=== PATIENT | female | born 1945 | race Two or more races ===

== ENCOUNTER 2025-03-20 11:09 | Emergency (ER) | payer OTHER ==
[~2025-03-20] VITALS: Ht 139.7 cm; Wt 50.0 kg
--- NOTE | 2025-03-20 11:37 | ED.PDOC ---
GI ASSESSMENT HPI Comments This is a 79 year old female BIB son and granddaughter presenting to the ED with chief complaint of abdominal pain. Son reports patient has been experiencing diffuse abdominal pain over the past few days along with exacerbation of her chronic back pain. Son relays that the patient has upcoming back surgery on 04/10 and patient was seen today in [facility] for pre-op, however, he was advised to take the patient to the ED for further evaluation of the abdominal pain. Son states patient was given Advil last night with no relief noted. Son notes patient was given a steroid injection for her back a week ago, but no relief in pain in her back had been noted. Son reports patient is unable to ambulate on her own with a walker, which is not normal for her. Patient denies any chest pain, N/V/D, SOB, dizziness, fever, chills, or dysuria. Chief Complaint: Back Pain Time Seen by MD: 11:34 Reviewed Notes: Nurses Notes, Medications, Allergies Allergies: Coded Allergies: NO KNOWN ALLERGIES (Unverified , 03/20/25) Information Source: Patient, Relative (Child) Mode of Arrival: Wheelchair Timing: Days Duration: Since onset Prehospital treatment: None Quality: Sharp Vomitus: None Stool: Normal Severity: Moderate Recent: None Recent Hx of: None Pain Location: Diffuse Modifying Factors: Nothing Associated sign and symptoms: Abdominal Pain Past Medical History Past Medical History (Other): Chronic back pain Surgical History: Denies all surgeries [employer]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: Denies all [employer] 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 Hx Family History Family History: Reviewed,noncontributory to illness Social History Smoker: Non-Smoker Alcohol: Denies ETOH Use Drugs: Denies Drug Use Lives In: Home Constitutional: denies: chills, diaphoresis, fatigue, fever, malaise, sweats, weakness, others EENTM: denies: blurred vision, double vision, ear bleeding, ear discharge, ear drainage, ear pain, ear ringing, eye pain, eye redness, hearing loss, mouth pain, mouth swelling, nasal discharge, nose bleeding, nose congestion, nose pain, photophobia, tearing, throat pain, throat swelling, voice changes, others Respiratory: denies: cough, hemoptysis, orthopnea, SOB at rest, shortness of breath, SOB with excertion, stridor, wheezing, others Cardiovascular: denies: chest pain, dizzy spells, diaphoresis, Dyspnea on exertion, edema, irregular heart beat, left arm pain, lightheadedness, pal pitations, PND, syncope, others Gastrointestinal: reports: abdominal pain; denies: abdomen distended, blood streaked bowels, constipated, diarrhea, dysphagia, difficulty swallowing, hematemesis, melena, nausea, poor appetite, poor fluid intake, rectal bleeding, rectal pain, vomiting, others Genitourinary: denies: abnormal vagina bleeding, burning, dyspareunia, dysuria, flank pain, frequency, hematuria, incontinence, pain, , vagina disc harge, urgency, others Neurological: denies: dizziness, fainting, headache, left sided numbness, left sided weakness, numbness, paresthesia, pre-existing deficit, right sided numbness, right sided weakness, seizure, speech problems, tingling, tremors, weakness, others Musculoskeletal: reports: back pain; denies: gout, joint pain, joint swelling, muscle pain, muscle stiffness, neck pain, others Integumetry: denies: bruises, change in color, change in hair/nails, dryness, laceration, lesions, lumps, rash, wounds, others Allergic/Immunocompromised: denies: Difficulty Healing, Frequent Infections, Hives, Itching, others Hematologic/Lymphatic: denies: anemia, blood clots, easy bleeding, easy bruising, swollen glands, others Endocrine: denies: excessive hunger, excessive sweating, excessive thirst, excessive urination, flushing, intolerance to cold, intolerance to heat, unexplained weight gain, unexplained weight loss, others Psychiatric: denies: anxiety, bipolar disorder, depression, hopeless, panic disorder, schizophrenia, sleepless, suicidal, others All Other Systems: Reviewed and Negative Physical Exam General Appearance: Mild Distress, Other (Appears uncomfortable) HEENT: Normal ENT Inspection, Pharynx Normal, TMs Normal Neck: Full Range of Motion, Non-Tender, Normal, Normal Inspection Respiratory: Chest Non-Tender, Lungs Clear, No Accessory Muscle Use, No Respiratory Distress, Normal Breath Sounds Cardiovascular: No Edema, No JVD, No Murmur, No Gallop, Normal Peripheral Pulses, Regular Rate/Rhythm Breast Exam: Deferred Gastrointestinal: No Organomegaly, No Pulsatile Mass, Normal Bowel Sounds, Soft, Tenderness (Diffuse abdominal tenderness) Genitalia: Deferred Pelvic: Deferred Rectal: Deferred Extremities: No calf tenderness, Normal capillary refill, Normal inspection, Normal range of motion, Non-tender, No pedal edema Musculoskeletal : Apperance: Normal Neurologic: Alert, university relations director II-XII nml as Tested, No Motor Deficits, Normal Affect, Normal Mood, No Sensory Deficits Cerebellar Function: Normal Reflexes: Normal Skin: Dry, Normal Color, Warm Lymphatic: No Adenopathy Was a procedure done? Was a procedure done?: No GI differential Dx Differential Diagnosis: Cholecystitis, Diverticular disease, Gastritis/PUD, Gastroenteritis, UTI, Urolithiasis, Dehydration, Viral X-Ray, Labs, Meds, VS Vital Signs Date Time Temp Pulse Resp B/P (MAP) Pulse Ox O2 Delivery O2 Flow Rate FiO2 03/20/25 15:00 88 16 163/63 03/20/25 14:39 82 16 163/63 (96) 99 03/20/25 11:11 98.4 85 16 150/74 95 98.4 Lab Test 03/20/25 11:41 Range/Units White Blood Count 7.9 4.4-10.8 10^3/uL Red Blood Count 4.48 4.0-5.20 10^6/uL Hemoglobin 12.2 12.2-16.2 g/dL Hematocrit 36.9 36.0-46.0 % Mean Corpuscular Volume 82.3 80.0-100.0 fL Mean Corpuscular Hemoglobin 27.2 L 28.0-32.0 pg Mean Corpuscular Hemoglobin Concent 33.0 32.0-36.0 g/dL Red Cell Distribution Width 15.1 H 11.8-14.3 % Platelet Count 333 140-450 10^3/uL Mean Platelet Volume 7.9 6.9-10.8 fL Neutrophils (%) (Auto) 76.8 37.0-80.0 % Lymphocytes (%) (Auto) 16.2 10.0-50.0 % Monocytes (%) (Auto) 6.0 0.0-12.0 % Eosinophils (%) (Auto) 0.2 0.0-7.0 % Basophils (%) (Auto) 0.8 0.0-2.0 % Neutrophils # (Auto) 6.1 1.6-8.6 10 ^3/uL Lymphocytes # (Auto) 1.3 0.4-5.4 10 ^3/uL Monocytes # (Auto) 0.5 0-1.3 10 ^3/uL Eosinophils # (Auto) 0 0-0.8 10 ^3/uL Basophils # (Auto) 0.1 0-0.2 10 ^3/uL Nucleated Red Blood Cells 0.2 % Sodium Level 140 136-145 mmol/L Potassium Level 3.9 3.5-5.1 mmol/L Chloride Level 107 98-107 mmol/L Carbon Dioxide Level 22 20-31 mmol/L Anion Gap 11 5-15 Blood Urea Nitrogen 11 9-23 mg/dL Creatinine 0.62 0.550-1.02 mg/dL Glomerular Filtration Rate Calc 92 >90 mL/min BUN/Creatinine Ratio 17.7 10.0-20.0 Serum Glucose 89 74-106 mg/dL Calcium Level 9.1 8.7-10.4 mg/dL Troponin I High Sensitivity 4 </=34 ng/L Current Medications Medications (Trade) Dose Ordered Sig/Jacqueline Route Start Time Stop Time Status Last Admin Sodium Chloride 1,000 ml @ 1,000 mls/hr Q1H ONCE IV 03/20/25 11:45 03/20/25 12:44 DC 03/20/25 15:00 Morphine Sulfate 4 mg ONCE ONCE IV 03/20/25 11:45 03/20/25 11:46 DC 03/20/25 15:00 Ondansetron HCl (Zofran) 4 mg ONCE ONCE IV 03/20/25 11:45 03/20/25 11:46 DC 03/20/25 15:00 [place] [address] Ph: [phone] DIAGNOSTIC IMAGING Diagnostic Imaging Report : [id number] Signed PATIENT: JAG PLUMMER ACCT: [id number] UNIT: [id number] : 1945 LOC: ER ROOM / BED: / AGE / SEX: 79 / F ADM STATUS: REG ER SERVICE 1133 ORDERING PHYSICIAN: HAYLEE HAMM MD PROCEDURE(s): ABPLIV - CT AB PEL WITH IV CON ONLY REASON: abdominal pain ORDER NUMBER(s): [id number], ACCESSION NUMBER(s): [id number] Indication: abdominal pain Technique: CT axial images of the abdomen and pelvis are obtained with contrast. Coronal and sagittal reformats were obtained. Radiation Dose Information: CTDI volume is 13.12 mGy. Dose-length product is 582.01 mGy*cm Comparison: None FINDINGS: Examination degraded by motion. The lung bases demonstrate no pleural effusion. 5 mm right lower lobe solid nodule. Cardiomegaly. Adrenal glands, spleen, pancreas unremarkable. No CT evidence for cholel ithiasis. No enhancing hepatic lesion. No hydronephrosis. Stomach is partially distended. Small bowel loops normal in caliber. Moderate volume stool throughout the colon. Normal appendix. Abdominal aortic atherosclerotic disease and tortuosity. Bladder distended. No free pelvic fluid. No inguinal lymphadenopathy. Supraumbilical hernia containing fat measuring 2.5 x 3.2 cm. Severe lumbar degenerative disc disease. Chronic compression deformities of the L2, L3 and L4 vertebral bodies most pronounced at L4.7 mm anterolisthesis L4 upon L5. IMPRESSION: Examination is markedly degraded by motion. Moderate volume stool within the colon Bladder distention. Supraumbilical hernia containing fat measuring 2.5 x 3.2 cm. Cardiomegaly. 5 mm right lower lobe pulmonary solid nodule. Recommend follow-up per fleischner society criteria. Other findings as described. ATED BY: CINDY LITTLE MD DICTATED DATE/TIME: 03/20/25 1359 SIGNED BY: CINDY LITTLE MD SIGNED DATE/TIME: 03/20/25 1359 CC: Images Reviewed?: Images reviewed and evaluated by me Time of 1ST Reevaluation: 12:34 Reevaluation 1ST: Unchanged Patient Education/Counseling: Diagnosis, Treatment Family Education/Counseling: Diagnosis, Treatment SEPSIS Sepsis Screen Date sepsis recognized/suspect: Mar 20, 2025 Time Sepsis recognized/suspect: 1117 Recent Procedure: No (T) On Antibiotic Therapy: No Respiratory Rate >20: No Heart Rate >90: No Temp<36 C (96.8 F) or >38.3 C: No SBP <90 or MAP <65 mmHG: No New Acute Mental Status Change: No Is the patient on CPAP, BIPAP,: No Physician Orders Urinalysis (03/20/25 11:33) Chest Portable (03/20/25 11:33) Ct Ab Pel With Iv Con Only (03/20/25 11:33) Cardiac Diet-2gna,Lofat,Lochol (03/20/25 Dinner) Vital Signs Date Time Temp Pulse Resp B/P (MAP) Pulse Ox O2 Delivery O2 Flow Rate FiO2 03/20/25 15:00 88 16 163/63 03/20/25 14:39 82 16 163/63 (96) 99 03/20/25 11:11 98.4 85 16 150/74 95 98.4 Laboratory Tests Test 03/20/25 11:41 White Blood Count 7.9 10^3/uL (4.4-10.8) Medications Medications Dose Ordered Sig/Jacqueline Route Start Time Stop Time Status Last Admin Dose Admin Morphine Sulfate 4 mg ONCE ONCE IV 03/20/25 11:45 03/20/25 11:46 DC 03/20/25 15:00 Ondansetron HCl 4 mg ONCE ONCE IV 03/20/25 11:45 03/20/25 11:46 DC 03/20/25 15:00 Sodium Chloride 1,000 ml @ 1,000 mls/hr Q1H ONCE IV 03/20/25 11:45 03/20/25 12:44 DC 03/20/25 15:00 Departure 1 Departure Time of Disposition: 16:55 ([facility] [id number] with intractable lower back pain. WIll transfer to [place] for further workup.) Impression: Primary Impression: Intractable low back pain Additional Impression: Lower extremity weakness Disposition: 02 SHORT TERM HOSPITAL Condition: Serious Critical Care Note Critical Care Time?: No Stability Stability form required: No Heart Score Heart Score: Heart Score Response (Comments) Value History N/A 0 EKG N/A 0 Age N/A 0 Risk Factors N/A 0 Troponin N/A 0 Total 0 I personally scribed for HAYLEE HAMM MD ([email or web address]) on 03/20/25 at 11:37. Electronically submitted by Rene Parsons ([email or web address]). I personally scribed for HAYLEE HAMM MD ([email or web address]) on 03/20/25 at 15:04. Electronically submitted by Rene Parsons ([email or web address]). HAYLEE HAMM MD Mar 20, 2025 11:37
[2025-03-20 12:05] LABS: Hematocrit 36.9 % (36.0-46.0); Hemoglobin 12.2 g/dL (12.2-16.2); Mean Corpuscular Hemoglobin 27.2 pg (28.0-32.0); Mean Corpuscular Volume 82.3 fL (80.0-100.0); Nucleated Red Blood Cells % 0.2 %
[2025-03-20 12:13] LABS: Potassium 3.9 mmol/L (3.5-5.1); Sodium 140 mmol/L (136-145)
[2025-03-20 12:14] LABS: Anion Gap 11 (5-15); Calcium 9.1 mg/dL (8.7-10.4); Carbon Dioxide 22 mmol/L (20-31)
[2025-03-20 12:18] LABS: Chloride 107 mmol/L (98-107)
[2025-03-20 12:19] LABS: BUN/Creatinine Ratio 17.7 (10.0-20.0); Blood Urea Nitrogen 11 mg/dL (9-23); Glucose 89 mg/dL (74-106)
--- NOTE | 2025-03-20 12:37 | DVH ---
EXAM: XY CHEST PORTABLE Indication: intractable abdominal pain Technique: Single frontal view of the chest was obtained Comparison: None FINDINGS: Lines and Tubes: None Lungs: No focal consolidation. Pleura: No effusion. No pneumothorax. Cardiomediastinal contours: Cardiomegaly. Atherosclerotic vascular calcifications of the thoracic aorta are noted. Bones: No acute osseous abnormality. IMPRESSION: No acute cardiopulmonary disease.
--- NOTE | 2025-03-20 13:56 | DVH ---
Indication: abdominal pain Technique: CT axial images of the abdomen and pelvis are obtained with contrast. Coronal and sagittal reformats were obtained. Radiation Dose Information: CTDI volume is 13.12 mGy. Dose-length product is 582.01 mGy*cm Comparison: None FINDINGS: Examination degraded by motion. The lung bases demonstrate no pleural effusion. 5 mm right lower lobe solid nodule. Cardiomegaly. Adrenal glands, spleen, pancreas unremarkable. No CT evidence for cholelithiasis. No enhancing hepatic lesion. No hydronephrosis. Stomach is partially distended. Small bowel loops normal in caliber. Moderate volume stool throughout the colon. Normal appendix. Abdominal aortic atherosclerotic disease and tortuosity. Bladder distended. No free pelvic fluid. No inguinal lymphadenopathy. Supraumbilical hernia containing fat measuring 2.5 x 3.2 cm. Severe lumbar degenerative disc disease. Chronic compression deformities of the L2, L3 and L4 vertebral bodies most pronounced at L4.7 mm anterolisthesis L4 upon L5. IMPRESSION: Examination is markedly degraded by motion. Moderate volume stool within the colon Bladder distention. Supraumbilical hernia containing fat measuring 2.5 x 3.2 cm. Cardiomegaly. 5 mm right lower lobe pulmonary solid nodule. Recommend follow-up per fleischner society criteria. Other findings as described.
[2025-03-20] MEDS: IOHEXOL 300 MG/ML 100ML BOTTLE IJ ONE (14:36)
[2025-03-20] MEDS: IOHEXOL 350 MG/ML 100ML IJ ONE (14:36)
[2025-03-20] MEDS: SODIUM CHLORIDE 0.9% 1,000 ML IV ONE (15:00)
[2025-03-20] MEDS: ONDANSETRON HCL 4 MG/2 ML VIAL IV ONE (15:00)
[2025-03-20] MEDS: MORPHINE SULFATE 4 MG/ML SYR/VIAL IV ONE (15:00)
[2025-03-20 17:41] VITALS: PULSE 88; RESP 16; O2SAT 98
[2025-03-20 18:32] VITALS: BP 131/67; PULSE 86; RESP 16; TEMP 98.2; O2SAT 98
== END 2025-03-20 19:05 | disposition short-term general hospital (02) ==
LOC: ER 11:09
DX: G89.29 Other chronic pain (principal); M54.50 Low back pain, unspecified; Z79.899 Other long term (current) drug therapy
CPT/HCPCS: 36415; 71045; 74177; 80048; 84484; 85025; 96361; 96374; 96375; 99285; J2270; J2405; J7030; Q9967